=== PATIENT | male | born 1995 | race Caucasian/White ===

== ENCOUNTER 2023-02-19 00:47 | Emergency (ER) | payer OTHER, SELFPAY ==
[2023-02-19 00:48] VITALS: BP 138/87; PULSE 84; RESP 18; TEMP 36.8; O2SAT 97
--- NOTE | 2023-02-19 00:54 | RAD_ITS ---
EXAM: XR Elbow Min 3 Views INDICATION: Male, 27 years old. Posttraumatic left elbow pain TECHNIQUE: AP and lateral views COMPARISON: None FINDINGS: BONES: No acute fracture. No lytic or blastic lesion. JOINTS: Joints are in normal alignment. There is mild degenerative change of the ulnotrochlear joint at the coronoid process. No periarticular inflammatory change. SOFT TISSUES: No soft tissue abnormality. RAD/Elbow min 3 Views IMPRESSION: No acute abnormality of the left elbow Electronically Signed: Frederick Saini MD at 2:08 EDT ,
--- NOTE | 2023-02-19 01:14 | EX.ED.UPPERE ---
HPI History of Present Illness Chief Complaint: Upper Extremity Injury Detail of Chief Complaint: Left elbow pain radiating to the wrist and arm. Informant: patient Occured/Mechanism Comment: Repetitive movement at work. Onset February 16. Onset/Context/Timing Onset: Days Context: Sudden Onset Timing: Continuous and Waxes and wanes Quality of Pain: Dull and Aching Location: Left elbow Current Severity: Mild Maximum Severity: Severe Worsened by: Supination pronation Relieved by: Nothing Associated Symptoms Associated Symptoms: Positive for Parasthesia and Weakness; Negative for Loss of Funtion Narrative Narrative: Patient is a 27-year-old [id number] male who presents with left elbow and forearm pain. This started on Friday. He reports moving heavy objects repeatedly at work. There is no history of direct trauma. Patient did have a [place] for treatment of lateral epicondylitis. He has no history of lateral epicondylitis. He denies shoulder or wrist pain. He does report pain going down into the wrist area. Prior similar symptoms: No Recent Illness/Hospitalization: No PFSH PFSH Medical History no medical history no medical history Home Medications multivitamin (Daily Multi-Vitamin tablet) 1 tab PO DAILY 02/19/23 [History Last Taken Unknown] naproxen 500 mg tablet 500 mg PO BID #14 tabs 02/19/23 [Rx Last Taken Unknown] Allergy/AdvReac Type Severity Reaction Status Date / Time No Known Allergies Allergy Verified 02/19/23 00:53 Surgical History History of appendectomy Social History (Updated 02/19/23 @ 01:[address] Ankush Koroma MD) Smoking Status: Never smoker substance use type: does not use ROS ROS ED Constitutional Constitutional ED: Denies chills, fever(s), subjective, sweats or weight loss Musculoskeletal Musculoskeletal: Reports other Details: Left elbow pain as previously described ; Denies back pain, myalgias or neck pain Neurologic Neurologic: Denies headache(s), paresthesias or weakness Hematologic/Lymphatic Hematologic/Lymphatic: Denies easy bleeding or easy bruising EXAM Physical Exam Const Vital Signs: 02/19/23 00:48 Temperature 98.3 F Temperature Source Oral Pulse Rate 84 Respiratory Rate 18 Blood Pressure 138/87 H Blood Pressure Mean 104 Pulse Ox 97 Oxygen Delivery Method Room Air Positive well nourished and well developed Constitutional Narrative: Patient has his left upper extremity abducted and flexed at 90 degrees at the elbow. General Appearance ED: well developed HEENT Reports moist mucous membranes normocephalic and atraumatic Eyes PERRL and EOMs intact bilaterally Neck full ROM Resp normal respiratory effort Cardio regular rate and regular rhythm Extremity normal to inspection and full ROM Extremity Narrative: Axillary, median, radial and ulnar function intact. There is pain outpatient over the lateral epicondyle region. Having him flex and pronate against resistance causes him discomfort over the lateral epicondyles. Radial pulses palpable. There is no pain the patient over the medial epicondyle, olecranon process or over the radial head with supination pronation. Neuro oriented x3, CN's II-XII intact bilaterally, moves all extremities, no focal motor deficits and no sensory deficits noted Sensorium / Orientation: alert Psych mental status grossly normal Skin Lesions: no lesions Rashes: no rashes Trauma: no lacerations or abrasions MDM MDM MDM Narrative Medical decision making narrative: Clinically suspect patient has a lateral epicondylitis. X-ray was obtained to evaluate for evidence of pull off fracture. Patient treated with NSAIDs since she has no contraindication. Radiography Chest X-Ray - ED: Read by ED Physician (Three-view x-ray of the left elbow was independent reviewed interpreted by me as negative. There is no evidence of fracture, subluxation or dislocation. There is no evidence of an anterior posterior fat pad. There is no evidence of prior injury.) Treatment and Re-Evaluation Narrative: Patient made aware of his x-ray findings. He was discharged appropriate home-going instructions and follow-up with [facility] since this is a work-related injury. He was given a prescription for naproxen. Discharge Plan Triage Chief Complaint: Upper Extremity Injury ED Provider: Ankush Koroma Dx/Rx/DC Orders Clinical Impression: Epicondylitis, lateral, left Instructions: ED Tennis Elbow Prescriptions: New naproxen 500 mg tablet 500 mg PO BID Qty: 14 0RF No Action multivitamin [Daily Multi-Vitamin] Tablet 1 tab PO DAILY Stand Alone Forms: ED Work / School Excuse Primary Care Provider: Care Physician,No Primary Referrals: [facility] [Group of Physicians] - 2 Days Care Physician,No Primary [Primary Care Provider] - Activity Restrictions/Additional Instructions: 1. Wear tennis elbow band until seen by corporate care 2. Apply ice to left elbow 6-10 times a day 3. Take naproxen as instructed until gone 4. No lifting of anything greater than 10 pounds Disposition Disposition: Home, Self Care
[2023-02-19] MEDS: Naproxen 500 MG Tablet PO (01:15)
== END 2023-02-19 01:32 | disposition home or self-care (01) ==
PROVIDERS: Emergency Provider Emergency Medicine; Visit Provider Emergency Medicine
DX: M77.12 Lateral epicondylitis, left elbow (principal); X50.0XXA Overexertion from strenuous movement or load, initial encounter
CPT/HCPCS: 73080; 99283

== ENCOUNTER 2023-03-25 07:00 | Outpatient (RCR) | payer OTHER, SELFPAY ==
--- NOTE | 2023-03-17 08:55 | HP.PTEVAL_ITS ---
Patient's Visit Information Visit Information Visit Information: GEOVANYN REY is a 27 year old M referred to Physical Therapy by JAVIER Gtz with a diagnosis of Lateral Epicondylitis. Date of Evaluation: 03/17/23 Physical Therapist: Erika Taylor DPT Visit Plan Frequency: 2-3x /Week Duration: 4 Weeks Plan: Add Gentle Stretching, Modalities HEP Given IE: Massage CW, CCW, Perpendicular, Parallel, Triceps Stretching, Heat and advised on a cock up wrist splint Subjective Subjective: Patient reports Left tennis elbow from work- this started about a month ago- middle of the shift- it just started stabbing him- constant rep from [employer] a night. 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 He is using the brace by the end of the night he takes the brace off and its pretty swollen. Right hand dominate. 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 Describes the pain as a sharp pain. It does radiate up to the scapula and radiate to the tip of his middle finger. He does have normal N/T in his fingers- he has nerve damage from the . He is wearing a tennis elbow brace on his elbow but nothing on his wrist. Sleep: regardless of where he is his arms fall asleep- that has not changed. He did not go to work last night due to a migraine. No MRI or x-rays. No injections. No pain at rest. PMHx: no change since NOW clinic visit Objective Objective: Posture: FH, RS- can correct with verbal cues but does not maintain Gait: no deviation noted good arm swing and trunk rotation Palpation: multiple trigger points throughout upper traps and scapula- medial and lateral epicondyles, tunnel of the ulnar nerve, ECRB ROM: Cervical: WFL, Shoulder: WFL, Elbow: WFL but does report tightness with end range flexion and discomfort with end range extension. 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 Special Tests L Elbow Tinels - Ulnar n.: Positive L Elbow Lat Epiconylitis - as named: Positive Balance/Special Test Scores Quick DASH Score: 34.0900 Goals Goal 1:: Patient will be I with HEP and progression Goal Time Frame: 4-6 Weeks Goal 2:: Patient will have equal lpn care manager strength Goal Time Frame: 4-6 Weeks Goal 3:: Patient will demo full painfree AROM of the left elbow Goal Time Frame: 4-6 Weeks Goal 4:: Patient will report 80% improvement Goal Time Frame: 4-6 Weeks Rehabilitation Potential Physical Therapy Diagnosis: Patient presents with hypomobility- he has increased pain with ROM, decreased scapular strength/stabilization, elbow/wrist strength and muscular endurance leading to increased pain with work tasks Rehabilitation Potential: Good Anticipated Interventions Patient/Client Instruction: Educate patient on: Benefits of Fitness Program Therapeutic Exercise to Include: Strength training, Endurance training, Body mechanics, Postural training, Flexibilty training, Passive ROM, Active ROM and Scapular Strength/Stabilization Manual Therapy Techniques to Include: Functional dry needling and Soft tissue mobilization TENS: Yes Cryotherapy (ice pack, ice massage): Yes Thermo therapy (hot pack): Yes Ultrasound (thermal/non thermal): Yes Text: Thank you for the opportunity to evaluate your patient. For Medicare and Medicare HMO plans, please review the plan of care and approve it. It will need to be FAXED BACK to us at [phone] for Medicare purposes. For Medicare only, by signing this I certify the plan of care. Please let me know if there are questions or concerns regarding this plan of care. Physician Signature: Date:
--- NOTE | 2023-04-03 16:52 | HP.PT.NRP ---
Patient Information Patient Information: GEOVANNY REY was seen in my office for initial evaluation on 03/17/23. The following Plan of Care was established for this patient: POC Established Initial Frequency: 2-3x /Week Initial Duration: 4 Weeks Anticipated Interventions Patient/Client Instruction: Educate patient on: Benefits of Fitness Program Therapeutic Exercise to Include: Strength training, Endurance training, Body mechanics, Postural training, Flexibilty training, Passive ROM, Active ROM and Scapular Strength/Stabilization Manual Therapy Techniques to Include: Functional dry needling and Soft tissue mobilization TENS: Yes Cryotherapy (ice pack, ice massage): Yes Thermo therapy (hot pack): Yes Ultrasound (thermal/non thermal): Yes Last Seen Last Seen: This patient was last seen in our office . Pertinent comments regarding their Physical therapy will appear below: Pt reports quitting his job so he cancelled all his appts due to not being covered under his WC- d/c from PT At this point I will be discontinuing this patient from physical therapy. I would be happy to see this patient again in the future if found appropriate by the physician. Thank you! Erika Taylor DPT Balance/Gait/Functional tests Balance/Special Test Scores Quick DASH Score: 34.0900
== END 2023-03-25 19:00 | disposition home or self-care (01) ==
LOC: PT 07:00
PROVIDERS: Referring Provider Physician Assistant Surgical; Visit Provider Physician Assistant Surgical
DX: M77.12 Lateral epicondylitis, left elbow (principal)
CPT/HCPCS: 97035; 97110; 97140; 97162